=== PATIENT | female | born 1980 | race Two or more races ===

== ENCOUNTER 2017-02-16 06:47 | Emergency (ER) | payer OTHER ==
[2017-02-16 06:54] VITALS: RESP 16
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
[2017-02-16 07:53] VITALS: BP 132/83; PULSE 71; TEMP 98.1; O2SAT 98
== END 2017-02-16 07:52 | disposition home or self-care (01) ==
DX: Z77.21 Contact with and (suspected) exposure to potentially hazardous body fluids (principal)